=== PATIENT | male | born 1965 | race Caucasian/White ===

== ENCOUNTER 2019-03-16 09:44 | Outpatient (CLI) | payer OTHER, SELFPAY ==
--- NOTE | 2019-03-16 09:53 | MR_ITS ---
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 Prior history of prior lami nectomy. COMPARISON: 08/06/2016 TECHNIQUE: Sagittal and axial multisequence imaging is submitted. Sagittal and axial T1 fat sat seque nces post-ProHance 17 cc IV. Mild disc bulging and osteophytes in the cervical spine. Mild cord contact suspected on the RIGHT at C5-6 and C6-7. Nonspecific marrow edema in the adjacent endplates of T11 and T12 and also L4 and L5. No acute fractures. Asymmetric disc space narrowing at T11-12 and mild disc bulging without cord cont act. Mild straightening of the normal lumbar lordosis. Disc desiccation throughout the lumbar spine but most significant at L4-5 and L5-S1. Conus terminates normally at L2. L1-L2: Shallow RIGHT paracentral disc protrusion with annular fissure. Mild facet arthropathy without stenosis. L2-L3: Mild facet arthropathy and central annular fissure without stenosis. L3-L4: Mild annular disc bulging and osteophytosis. Mild facet arthropathy. No significant stenosis. L4-L5: Mild annular disc bulging with ligamentum flavum hypertrophy and facet arthropathy. No focal h erniation. RIGHT laminectomy defect is noted. No significant central stenosis. Osteophyte encroachmen t upon the foramen bilaterally. Mild RIGHT and moderate LEFT foraminal stenosis. Central disc protrusion seen on the prior MRI at L4-5 is no longer present. L5-S1: Annular disc bulging. Central annular fissure. Mild osteophytosis. Mild subarticular recess an d foraminal stenosis. Postcontrast images demonstrates some mild enhancement within the endplates of T11, T12, L4 and L5. N o enhancement of the disc therefore this is probably reactive enhancement within the marrow and not a n infectious process. No epidural abscess. MR/MR lumbar spine wo/w con [id number] IMPRESSION: 1. Reactive marrow edema with mild enhancement in T11, T12, L4 and L5. Favor t his is reactive edema and not osteomyelitis. The discs do not enhance. There is some mild soft tissue enhancement surrounding the L4 and L5 vertebral bodies w ith no abscess. Enhancement can also be postsurgical. Please correlate with mattie e of most recent surgery. 2. RIGHT hemilaminectomy defect at the L4-5 level. Previously described large disc protrusion at the L4-5 level is no longer present. 3. Multilevel degenerative changes in the facets and disc spaces as above. 4. Moderate LEFT and mild RIGHT foraminal stenosis at L4-5. 5. Mild subarticular recess and foraminal stenosis at L5-S1.
== END 2019-03-16 09:45 | disposition home or self-care (01) ==
LOC: RADWPI 09:47
PROVIDERS: Family Provider Internal Medicine; PCP Internal Medicine; Visit Provider Internal Medicine
DX: M51.17 Intervertebral disc disorders with radiculopathy, lumbosacral region (principal); M47.896 Other spondylosis, lumbar region; M48.061 Spinal stenosis, lumbar region without neurogenic claudication; M48.07 Spinal stenosis, lumbosacral region
CPT/HCPCS: 72158; A9579

== ENCOUNTER → 2019-04-19 08:59 | Outpatient (BNVA) | payer OTHER, SELFPAY | PROVIDERS: Family Provider Internal Medicine; PCP Internal Medicine; Referring Provider Licensed Practical Nurse; Visit Provider Psychiatry & Neurology Neurology | DX: M54.5 Low back pain (principal); M79.604 Pain in right leg; M79.605 Pain in left leg | CPT/HCPCS: 95886; 95909 ==

== ENCOUNTER 2019-05-03 14:21 | Outpatient (CLI) | payer OTHER, SELFPAY ==
--- NOTE | 2019-05-03 14:50 | XR_ITS ---
WS: [id number] LATERAL LUMBAR SPINE: 3 view. Lateral radiographs are performed in upright neutral, flexion and extension to the patient's toleranc e. HISTORY: low back pain COMPARISON: None available. Straightening of the normal lumbar lordosis. Severe degenerative disc disease at L4-5 and L5-S1. L4: Retrolisthesis by 3.3 mm on neutral imaging with no change from flexion or extension. L3: Retrolisthesis by 3.5 mm with no instability. XR/XR lumbar spine f/e only [id number] IMPRESSION: 1. L3 and L4 retrolisthesis with no instability. 2. Severe degenerative disc disease at L4-5 and L5-S1.
== END 2019-05-03 14:22 | disposition home or self-care (01) ==
PROVIDERS: Family Provider Internal Medicine; PCP Internal Medicine; Visit Provider Licensed Practical Nurse
DX: M47.896 Other spondylosis, lumbar region (principal); M54.5 Low back pain
CPT/HCPCS: 72120

== ENCOUNTER → 2019-07-14 09:24 | Outpatient (BNVA) | payer OTHER, SELFPAY | PROVIDERS: Family Provider Internal Medicine; PCP Internal Medicine; Referring Provider Licensed Practical Nurse; Visit Provider Anesthesiology Pain Medicine | DX: M51.17 Intervertebral disc disorders with radiculopathy, lumbosacral region (principal); M54.9 Dorsalgia, unspecified; M47.816 Spondylosis without myelopathy or radiculopathy, lumbar region; M96.1 Postlaminectomy syndrome, not elsewhere classified; Z98.890 Other specified postprocedural states | CPT/HCPCS: 99203; 99204 ==

== ENCOUNTER → 2019-07-30 13:27 | Outpatient (BNVA) | payer OTHER, SELFPAY | PROVIDERS: Family Provider Internal Medicine; PCP Internal Medicine; Visit Provider Anesthesiology Pain Medicine | DX: M51.17 Intervertebral disc disorders with radiculopathy, lumbosacral region (principal) | CPT/HCPCS: 64483; 64484; J1030; J2001; J3490 ==

== ENCOUNTER → 2019-09-01 09:03 | Outpatient (BNVA) | payer OTHER, SELFPAY | PROVIDERS: Family Provider Internal Medicine; PCP Family Medicine; Visit Provider Anesthesiology Pain Medicine | DX: M47.816 Spondylosis without myelopathy or radiculopathy, lumbar region (principal); M51.17 Intervertebral disc disorders with radiculopathy, lumbosacral region; M54.9 Dorsalgia, unspecified; M96.1 Postlaminectomy syndrome, not elsewhere classified; M79.605 Pain in left leg; M79.604 Pain in right leg; M54.2 Cervicalgia; Z98.890 Other specified postprocedural states | CPT/HCPCS: 99213 ==

== ENCOUNTER 2019-09-08 10:30 | Outpatient (CLI) | payer OTHER, SELFPAY ==
--- NOTE | 2019-09-08 10:38 | XRR_ITS ---
PROCEDURE INFORMATION: Exam: XR Cervical Spine, 2 or 3 Views Exam date and time: 09/08/2019 10:48 AM Age: 53 years old Clinical indication: Neck pain TECHNIQUE: Imaging protocol: XR of the cervical spine, 2 or 3 views. COMPARISON: MRI Cervical Spine w/o* [id number] 07/02/2019 8:57 AM FINDINGS: Vertebrae: Alignment is normal. posterior vertebral line and the spinal laminar line normal odontoid process normal no fracture Degenerative disc disease most pronounced C5-C6 and C6-C7. Soft tissues: Unremarkable. Other findings: No motion with extension. XR/XR cervical spine fl/ex [id number] IMPRESSION: Degenerative disc disease most pronounced C5-C6 and C6-C7.
== END 2019-09-08 10:31 | disposition home or self-care (01) ==
LOC: RAD 10:34
PROVIDERS: Family Provider Internal Medicine; PCP Family Medicine; Visit Provider Licensed Practical Nurse
DX: M50.020 Cervical disc disorder with myelopathy, mid-cervical region, unspecified level (principal); M50.323 Other cervical disc degeneration at C6-C7 level
CPT/HCPCS: 72040

== ENCOUNTER → 2019-09-20 13:00 | Outpatient (BNVA) | payer OTHER, SELFPAY | PROVIDERS: Family Provider Internal Medicine; PCP Family Medicine; Visit Provider Anesthesiology Pain Medicine | DX: M51.17 Intervertebral disc disorders with radiculopathy, lumbosacral region (principal); M54.9 Dorsalgia, unspecified; F17.210 Nicotine dependence, cigarettes, uncomplicated | CPT/HCPCS: 64483; 64484; J1040; J3490 ==

== ENCOUNTER → 2019-10-01 09:18 | Outpatient (BNVA) | payer OTHER, SELFPAY | PROVIDERS: Family Provider Internal Medicine; PCP Family Medicine; Visit Provider Anesthesiology Pain Medicine | DX: M79.18 Myalgia, other site (principal); M47.816 Spondylosis without myelopathy or radiculopathy, lumbar region; M51.17 Intervertebral disc disorders with radiculopathy, lumbosacral region; M54.9 Dorsalgia, unspecified; M96.1 Postlaminectomy syndrome, not elsewhere classified; M48.02 Spinal stenosis, cervical region; F17.210 Nicotine dependence, cigarettes, uncomplicated; Z98.890 Other specified postprocedural states; Z79.891 Long term (current) use of opiate analgesic | CPT/HCPCS: 20553; 99213; 99214; J1030; J3490 ==

== ENCOUNTER → 2019-11-03 10:58 | Outpatient (BNVA) | payer OTHER, SELFPAY | PROVIDERS: Family Provider Internal Medicine; PCP Family Medicine; Visit Provider Licensed Practical Nurse | DX: M50.020 Cervical disc disorder with myelopathy, mid-cervical region, unspecified level (principal); M51.17 Intervertebral disc disorders with radiculopathy, lumbosacral region; M96.1 Postlaminectomy syndrome, not elsewhere classified; F17.210 Nicotine dependence, cigarettes, uncomplicated | CPT/HCPCS: 99214 ==

== ENCOUNTER → 2019-11-04 08:57 | Outpatient (BNVA) | payer OTHER, SELFPAY | PROVIDERS: Family Provider Internal Medicine; PCP Family Medicine; Visit Provider Anesthesiology Pain Medicine | DX: M79.18 Myalgia, other site (principal); M47.816 Spondylosis without myelopathy or radiculopathy, lumbar region; M51.17 Intervertebral disc disorders with radiculopathy, lumbosacral region; M96.1 Postlaminectomy syndrome, not elsewhere classified; M54.9 Dorsalgia, unspecified; M54.2 Cervicalgia; F17.210 Nicotine dependence, cigarettes, uncomplicated; Z98.890 Other specified postprocedural states | CPT/HCPCS: 20553; 99213; 99214; J1030; J3490 ==

== ENCOUNTER 2020-07-18 08:01 | Outpatient (CLI) | payer OTHER, SELFPAY ==
--- NOTE | 2020-07-18 08:00 | MR_ITS ---
WS: [id number] MRI LUMBAR SPINE NONCONTRAST HISTORY: BACK PAIN W RADICULOPATHY, PARESTHESIA/ANESTHESIA OF SKIN COMPARISON: 03/16/2019 TECHNIQUE: Sagittal and axial multisequence imaging is submitted. Prior anterior cervical fusion from C5 to C7. Mild central stenosis at C3-4 due to disc and osteophyt e disease. Very minimal LEFT curvature the lower lumbar spine. Again noted is a small amount of marrow edema wit hin the endplates of T11 and T12 and L4-5. Overall there is been an improvement in the extent of the edema. Moderate disc space narrowing at T11-12, L4-5 and L5-S1 is stable. No fractures. Conus terminates normally at L1-2 disc level. L1-L2: Normal. L2-L3: Normal. L3-L4: Mild annular disc bulging. There is a central small disc protrusion with annular fissure. Mild flattening of the ventral thecal sac. There is very mild encroachment into the foramen by disc disea se. No significant stenosis. L4-L5: Moderate annular disc bulging with osteophytic ridging. Mild facet and ligamentum flavum hyper trophy. There is mild encroachment into the lateral recesses, subarticular recesses and foramen. RIGH T hemilaminectomy defect is also noted. There is disc contact but no displacement on the LEFT L5 nerv e root. L5-S1: Mild annular disc bulging with moderate facet and ligamentum flavum arthritis. Small annular f issure is again noted. There is mild bilateral subarticular recess and foraminal stenosis. MR/MR lumbar spine wo con* [id number] IMPRESSION: 1. No significant progression of stenoses in the lumbar spine. 2. Moderate improvement in the marrow edema noted in the endplates of T11-12 a nd L4-5. There is persistent edema with no progressive loss of disc space heigh t. 3. Mild bilateral lateral recess, subarticular recess and foraminal stenosis a t L4-5. Mild contact on the LEFT L5 nerve root. 4. Mild bilateral subarticular recess and foraminal stenosis at L5-S1 is uncha nged.
== END 2020-07-18 08:02 | disposition home or self-care (01) ==
PROVIDERS: PCP Family Medicine; Visit Provider Surgery
DX: M54.10 Radiculopathy, site unspecified (principal); R20.2 Paresthesia of skin; R20.0 Anesthesia of skin; R60.0 Localized edema; M48.07 Spinal stenosis, lumbosacral region
CPT/HCPCS: 72148

== ENCOUNTER → 2021-05-25 10:47 | Outpatient (BNVA) | payer OTHER, SELFPAY | PROVIDERS: PCP Family Medicine; Visit Provider Internal Medicine Cardiovascular Disease | DX: I25.10 Atherosclerotic heart disease of native coronary artery without angina pectoris (principal); I10 Essential (primary) hypertension; F17.210 Nicotine dependence, cigarettes, uncomplicated | CPT/HCPCS: 99214 ==

== ENCOUNTER → 2024-05-25 09:43 | Outpatient (BNVA) | payer OTHER, SELFPAY | PROVIDERS: PCP Family Medicine; Visit Provider Internal Medicine Rheumatology | DX: M25.9 Joint disorder, unspecified (principal); Z79.899 Other long term (current) drug therapy; M25.50 Pain in unspecified joint; Z71.85 Encounter for immunization safety counseling | CPT/HCPCS: 73130; 73630; 80076; 82565; 85025; 85651; 86140; 86200; 86431; 86480; 86704; 86803; 87340; 99204 ==

== ENCOUNTER → 2024-08-24 09:50 | Outpatient (BNVA) | payer OTHER, SELFPAY | PROVIDERS: PCP Family Medicine; Visit Provider Internal Medicine Rheumatology | DX: M25.9 Joint disorder, unspecified (principal); M25.50 Pain in unspecified joint; Z79.899 Other long term (current) drug therapy; Z71.85 Encounter for immunization safety counseling | CPT/HCPCS: 99214 ==

== ENCOUNTER 2024-12-03 13:13 | Outpatient (CLI) | payer OTHER, SELFPAY ==
--- NOTE | 2024-12-03 13:55 | MR_ITS ---
WS: [id number] MR CERVICAL SPINE WO/W COMPARISON: MRI 2019 HISTORY: neck pain lt sided TECHNIQUE: Sagittal T1, T2 and T2 inversion recovery; axial T2, T2 gradient and fiesta. Post gadolinium imaging with fat saturation technique. FINDINGS: Postoperative changes are new from previous with ACDF C5-C7. Slight retrolisthesis C3 on C4. Shallow central protrusions in the upper thoracic spine at T1-T3. Cord signal is normal. No abnormal gadolinium enhancement. C2-3: Spinal canal and foramen are patent. C3-4: Slight retrolisthesis. Disc osteophyte complex with moderate central canal stenosis. Slight indentation on the cervical cord. Moderate to severe LEFT and moderate RIGHT bony foraminal narrowing. Uncovertebral joint hypertrophy. Mild facet arthropathy. C4-5: Mild disc bulging. Mild facet arthropathy. Mild bilateral foraminal narrowing. C5-6: ACDF. Disc osteophyte ridging. Spinal canal is patent. Moderate bilateral bony foraminal narrowing. Moderate facet arthropathy. C6-7: Postoperative changes ACDF. Moderate to severe LEFT and moderate RIGHT bony foraminal narrowing. Spinal canal is patent. C7-T1: Shallow central protrusion. Mild LEFT and no significant RIGHT foraminal narrowing. Spinal canal is patent. MR/MR cervical spine wo/w [id number] IMPRESSION: 1. Interval postoperative changes ACDF C5-C7. Slight retrolisthesis C3 on C4. 2. No abnormal gadolinium enhancement. 3. Moderate central canal stenosis C3-4 due to disc osteophyte complex. 4. Bony foraminal narrowing worse at LEFT C3-4, bilateral C5-6 LEFT greater th an RIGHT, LEFT greater than RIGHT C6-7, and LEFT C7-T1.
[2024-12-03] MEDS: gadobenate dimeglumine 20 mL vial 17 ML IV (14:29)
== END 2024-12-03 13:14 | disposition home or self-care (01) ==
LOC: RAD 13:14
PROVIDERS: PCP Family Medicine; Visit Provider Family Medicine
DX: M50.321 Other cervical disc degeneration at C4-C5 level (principal); M43.12 Spondylolisthesis, cervical region; M25.78 Osteophyte, vertebrae; M48.02 Spinal stenosis, cervical region
CPT/HCPCS: 72156